=== PATIENT | male | born 1975 | race Caucasian/White ===

== ENCOUNTER 2020-07-20 14:35 | Outpatient (REF) | payer OTHER, SELFPAY | END 2020-07-20 14:36 | disposition home or self-care (01) | LOC: HO.LAB 14:35 | PROVIDERS: Visit Provider Internal Medicine | DX: Z20.828 Contact with and (suspected) exposure to other viral communicable diseases (principal) | CPT/HCPCS: C9803; U0003 ==

== ENCOUNTER → 2021-10-24 09:26 | Outpatient (BNVA) | payer SELFPAY | PROVIDERS: PCP Internal Medicine; Visit Provider Physician Assistant Medical | DX: Z02.79 Encounter for issue of other medical certificate (principal) ==

== ENCOUNTER 2022-12-04 00:25 | Emergency (ER) | payer OTHER, SELFPAY ==
[2022-12-04 01:17] VITALS: BP 158/96; PULSE 83; RESP 19; TEMP 37; O2SAT 96; BMI 31.1
--- NOTE | 2022-12-04 01:45 | ED.ALLEREA ---
HPI - Allergic Reaction General Chief complaint: Allergic Reaction Stated complaint: allergic reaction from meds, hives/rash Time Seen by Provider: 12/04/22 01:45 Source: patient Mode of arrival: ambulatory Limitations: no limitations History of Present Illness HPI narrative: Patient complaining of skin lesions for last few weeks multiple lesions on the extremities on the chin , no fever no history of MRSA in the past Related Data Previous Rx's Medication Instructions Recorded cephalexin 500 mg capsule 500 mg PO QID 10 days #40 caps 12/04/22 doxycycline hyclate 100 mg tablet 100 mg PO BID #20 tabs 12/04/22 Allergies Allergy/AdvReac Type Severity Reaction Status Date / Time No Known Allergies Allergy Unverified 05/21/22 16:09 Aspirin Allergy Unknown Uncoded 05/21/22 16:09 Review of Systems Review of Systems: Yes all other systems are reviewed and are negative FOR[facility]LY [facility] Past Medical History Attestation statement: The following information was validated with the patient. Social History Social History Advance Directives: No Advance Directives Information Provided: Yes Physical Exam ED Vital Signs: Vital Signs - 24 hr 12/04/22 01:17 12/04/22 02:10 Temperature 98.6 F Pulse Rate 83 74 Respiratory Rate 19 20 Blood Pressure 158/96 H 144/91 H Pulse Oximetry 96 97 Oxygen Delivery Method Room Air Room Air BMI result Body Mass Index 31.1 Appearance: Alert. Oriented X3. No acute distress. ENT: Pharynx normal. Oral Mucosa moist no oral lesions Neck: Normal inspection. Neck supple. CVS: Normal heart rate and rhythm. Pulses normal. Respiratory: No respiratory distress. Equal air entry bilateral, no wheezing/rales/rhonchi Abdomen: Soft and nontender. Bowel sounds are present, no mass palpable, no CVA tenderness Skin: Skin warm and dry. Normal skin color. Normal skin turgor. Multiple skin lesions with trejo yellow base? MRSA infection Extremities: No lower extremity edema. No calf tenderness Neuro: Oriented X 3. Medications Administered Discontinued Medications Generic Name Dose Route Start Last Admin Trade Name Freq PRN Reason Stop Dose Admin Cephalexin HCl 500 mg 12/04/22 01:58 12/04/22 02:13 Cephalexin 500 Mg Capsule PO 12/04/22 01:59 500 mg ONCE ONE Administration Doxycycline Monohydrate 100 mg 12/04/22 01:57 12/04/22 02:13 Doxycycline Monohydrate 100 Mg Capsule PO 12/04/22 01:58 100 mg ONCE ONE Administration Medical Decision Making Medical Decision Making [facility] Narrative: Patient clinically has MRSA infection will give him Keflex and doxycycline sample taken for culture Discharge Plan Discharge Clinical Impression: Staph aureus infection Patient Disposition: Home, Self-Care Instructions: MRSA (Methicillin-Resistant Staphylococcus Aureus) (ED) Additional Instructions: Take antibiotic as prescribed Follow with PCP if not better Prescriptions: New cephalexin 500 mg capsule 500 mg PO QID 10 Days Qty: 40 0RF doxycycline hyclate 100 mg tablet 100 mg PO BID Qty: 20 0RF Interventions: ED Discharge Assessment Last Done: 12/04/22 02:15 Discharge Date/Time: 12/04/22 02:15
[2022-12-04 02:10] VITALS: BP 144/91; PULSE 74; RESP 20; O2SAT 97
[2022-12-04] MEDS: cephALEXin 500 MG CAPSULE PO (02:13)
[2022-12-04] MEDS: Doxycycline Monohydrate 100 MG CAPSULE PO (02:13)
== END 2022-12-04 02:15 | disposition home or self-care (01) ==
PROVIDERS: Emergency Provider Internal Medicine
DX: A49.01 Methicillin susceptible Staphylococcus aureus infection, unspecified site (principal)
CPT/HCPCS: 87070; 87205; 99283

== ENCOUNTER 2025-01-29 13:46 | Emergency (ER) | payer SELFPAY ==
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
[2025-01-29 13:49] VITALS: BP 157/98; PULSE 90; RESP 16; TEMP 36.4; O2SAT 96; BMI 30.8
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
[2025-01-29 16:35] VITALS: BP 157/98; PULSE 90; RESP 16; TEMP 36.4; O2SAT 96
== END 2025-01-29 16:36 | disposition home or self-care (01) ==
PROVIDERS: Emergency Provider Emergency Medicine; PCP Internal Medicine
DX: S13.4XXA Sprain of ligaments of cervical spine, initial encounter (principal); R51.9 Headache, unspecified; M54.2 Cervicalgia; M54.50 Low back pain, unspecified; M25.562 Pain in left knee; M25.561 Pain in right knee; V69.9XXA Occupant (driver) (passenger) of heavy transport vehicle injured in unspecified traffic accident, initial encounter; Y93.9 Activity, unspecified; Y92.410 Unspecified street and highway as the place of occurrence of the external cause; Y99.8 Other external cause status
CPT/HCPCS: 70450; 72100; 72125; 73564; 99283; 99284

== ENCOUNTER → 2025-01-29 13:55 | Outpatient (BNV) | payer SELFPAY | PROVIDERS: Emergency Provider Emergency Medicine; PCP Internal Medicine; Visit Provider Radiology Diagnostic Radiology | DX: S13.4XXA Sprain of ligaments of cervical spine, initial encounter (principal); M25.562 Pain in left knee; M25.561 Pain in right knee; M54.50 Low back pain, unspecified; V89.2XXA Person injured in unspecified motor-vehicle accident, traffic, initial encounter | CPT/HCPCS: 70450; 72100; 72125; 73564 ==